=== PATIENT | male | born 1985 | race African-American/Black ===

== ENCOUNTER 2016-10-07 21:37 | Inpatient (IN) | payer MEDICAID ==
[~2016-10-07] VITALS: Ht 170.2 cm; Wt 66.2 kg
[~2016-10-07 21:37] MED LIST: HYDR-3240 PO; OMEP-110 PO; ONDA4TAB13 PO; ONDA4TAB13 SL; PANT40TA5 PO
[2016-10-07] MEDS ORDERED: MORPHINE SULFATE 4 MG/ML, 1ML ONE ×2 (22:26→23:28)
[2016-10-07] MEDS ORDERED: ONDANSETRON 2MG/ML, 2ML ONE (22:26)
[2016-10-07] MEDS ORDERED: ONDANSETRON 2MG/ML, 2ML IVPush ONE (22:30)
[2016-10-07] MEDS ORDERED: SODIUM CHLORIDE FLUSH 10ML SYR IVF ONE (22:30)
[2016-10-07] MEDS ORDERED: SODIUM CHLORIDE 0.9% 1,000ML IVBOLUS ONE ×2 (22:30→23:30)
[2016-10-07] MEDS: MORPHINE SULFATE 4 MG/ML, 1ML IVPush PRN ×2 (22:44→23:30)
[2016-10-07 22:46] LABS: HEMOGLOBIN 16.9 g/dL (13.7-18.0)
[2016-10-07 22:59] LABS: ASPARTATE AMINO TRANSFERASE 18 U/L (15-37); BLOOD UREA NITROGEN 14 mg/dL (7-18)
[2016-10-07 23:10] LABS: DIFF TOTAL CELLS COUNTED 100 CELL DIFF
[2016-10-07 23:11] LABS: VERIFY COUNTS? YES
[2016-10-07] MEDS ORDERED: OMNIPAQUE 350 MG/ML, 100ML BOTTLE ONE (23:45)
[2016-10-08 00:13] LABS: DAU SCREEN DISCLAIMER
[2016-10-08] MEDS ORDERED: BISACODYL 10 MG SUPP PR PRN (02:00)
[2016-10-08] MEDS ORDERED: D5%-0.9% NACL+KCL 20MEQ 1,000 ML IV SCH (02:00)
[2016-10-08] MEDS ORDERED: ONDANSETRON 2MG/ML, 2ML IVP PRN (02:00)
[2016-10-08] MEDS ORDERED: ENALAPRILAT 1.25 MG/ML, 2ML IVPush PRN (02:00)
[2016-10-08] MEDS: METOCLOPRAMIDE 5 MG/ML, 2ML IVPush SCH ×4 (02:00→17:18)
[2016-10-08] MEDS: HEPARIN 5,000 UNITS/ML, 1ML SQ SCH ×3 (02:00→17:13)
[2016-10-08] MEDS ORDERED: POLYETHYLENE GLYCOL 17 GM PACKET PO PRN (02:00)
[2016-10-08 02:56] LABS: BLOOD UREA NITROGEN 12 mg/dL (7-18)
[2016-10-08] MEDS: SODIUM CHLORIDE 0.9% 1,000 ML IV SCH ×3 (03:17→18:05)
[2016-10-08] MEDS: MORPHINE SULFATE 4 MG/ML, 1ML IVPush PRN (03:38)
[2016-10-08 06:31] LABS: HEMOGLOBIN 14.6 g/dL (13.7-18.0)
[2016-10-08] MEDS: ACETAMINOPHEN 325 MG TABLET PO PRN ×2 (06:36→21:35)
[2016-10-08 08:00] VITALS: BP 160/76
[2016-10-08] MEDS: PANTOPRAZOLE 40 MG IV IVP SCH (08:04)
[2016-10-08] MEDS: SENNA/DOCUSATE TABLET PO SCH (08:07)
[2016-10-08 09:57] VITALS: BP 125/61
[2016-10-08 14:00] VITALS: BP 121/68
[2016-10-08 19:27] VITALS: BP 153/85
[2016-10-08] MEDS: ONDANSETRON 2MG/ML, 2ML IVP SCH (20:19)
[2016-10-09] MEDS: METOCLOPRAMIDE 5 MG/ML, 2ML IVPush SCH ×2 (00:17→06:22)
[2016-10-09] MEDS: SODIUM CHLORIDE 0.9% 1,000 ML IV SCH ×3 (00:18→15:25)
[2016-10-09 01:42] VITALS: BP 151/70
[2016-10-09] MEDS: HEPARIN 5,000 UNITS/ML, 1ML SQ SCH ×3 (02:00→18:18)
[2016-10-09] MEDS: ONDANSETRON 2MG/ML, 2ML IVP SCH ×4 (03:00→19:41)
[2016-10-09 05:54] LABS: HEMOGLOBIN 13.6 g/dL (13.7-18.0)
[2016-10-09 05:59] LABS: BLOOD UREA NITROGEN 6 mg/dL (7-18)
[2016-10-09 06:03] LABS: ASPARTATE AMINO TRANSFERASE 17 U/L (15-37)
[2016-10-09 06:53] VITALS: BP 157/86
[2016-10-09] MEDS: PANTOPRAZOLE 40 MG IV IVP SCH (09:31)
[2016-10-09] MEDS: SENNA/DOCUSATE TABLET PO SCH (09:32)
[2016-10-09] MEDS: ACETAMINOPHEN 325 MG TABLET PO PRN (09:33)
[2016-10-09] MEDS ORDERED: MAALOX/HYOSCYAMINE/LIDOCAINE 45 ML BOTTLE PO PRN (11:00)
[2016-10-09 12:58] VITALS: BP 129/73
[2016-10-09 19:07] VITALS: BP 121/73
[2016-10-10] MEDS: HEPARIN 5,000 UNITS/ML, 1ML SQ SCH ×3 (00:51→18:36)
[2016-10-10] MEDS: ONDANSETRON 2MG/ML, 2ML IVP SCH ×2 (01:50→08:00)
[2016-10-10 02:32] VITALS: BP 122/76
[2016-10-10 05:53] LABS: HEMOGLOBIN 13.6 g/dL (13.7-18.0)
[2016-10-10 06:16] LABS: BLOOD UREA NITROGEN 4 mg/dL (7-18)
[2016-10-10 06:34] VITALS: BP 174/96
[2016-10-10] MEDS ORDERED: POTASSIUM CHLORIDE 20 MEQ in SODIUM CHLORIDE 0.9% 250 ML IV ONE (09:00)
[2016-10-10] MEDS ORDERED: MAGNESIUM SULFATE PMX 2GM/50ML 50 ML IV ONE (10:00)
[2016-10-10] MEDS ORDERED: NEUTRA PHOS K 250 MG TABLET PO ONE (10:00)
[2016-10-10] MEDS: PANTOPRAZOLE 40 MG IV IVP SCH (10:58)
[2016-10-10] MEDS: SENNA/DOCUSATE TABLET PO SCH (11:09)
[2016-10-10] MEDS: MAALOX/HYOSCYAMINE/LIDOCAINE 45 ML BOTTLE PO SCH ×2 (12:27→21:00)
[2016-10-10 14:04] VITALS: BP 117/72
[2016-10-10] MEDS: POTASSIUM CHLORIDE 20 MEQ TAB.ER.PRT PO SCH (18:36)
[2016-10-10 18:57] VITALS: BP 141/87
[2016-10-11 01:15] VITALS: BP 158/84
[2016-10-11] MEDS: HEPARIN 5,000 UNITS/ML, 1ML SQ SCH ×3 (02:00→17:35)
[2016-10-11 06:22] LABS: BLOOD UREA NITROGEN 7 mg/dL (7-18)
[2016-10-11] MEDS: PANTOPROZOLE 40MG TABLET PO SCH (07:30)
[2016-10-11] MEDS: POTASSIUM CHLORIDE 20 MEQ TAB.ER.PRT PO SCH (08:00)
[2016-10-11 08:01] VITALS: BP 118/78
[2016-10-11] MEDS ORDERED: POTASSIUM CHLORIDE 20 MEQ TAB.ER.PRT PO ONE (08:30)
[2016-10-11] MEDS ORDERED: POTASSIUM CHLORIDE 40 MEQ in SODIUM CHLORIDE 0.9% 500 ML IV ONE (09:00)
[2016-10-11] MEDS: SENNA/DOCUSATE TABLET PO SCH (09:00)
[2016-10-11] MEDS: MAALOX/HYOSCYAMINE/LIDOCAINE 45 ML BOTTLE PO SCH ×2 (09:03→21:46)
[2016-10-11] MEDS: ONDANSETRON 2MG/ML, 2ML IVP PRN ×2 (09:06→15:13)
[2016-10-11 14:00] VITALS: BP 146/97
[2016-10-11 18:58] VITALS: BP 133/85
[2016-10-12] MEDS: HEPARIN 5,000 UNITS/ML, 1ML SQ SCH ×3 (01:26→18:00)
[2016-10-12 01:39] VITALS: BP 132/73
[2016-10-12 05:47] LABS: HEMOGLOBIN 15.5 g/dL (13.7-18.0)
[2016-10-12 06:05] LABS: BLOOD UREA NITROGEN 8 mg/dL (7-18)
[2016-10-12 06:41] VITALS: BP 136/79
[2016-10-12] MEDS: PANTOPROZOLE 40MG TABLET PO SCH (07:30)
[2016-10-12] MEDS ORDERED: MIDAZOLAM 1 MG/ML, 2ML ONE (07:44)
[2016-10-12] MEDS ORDERED: PROPOFOL 10 MG/ML, 20ML ONE (07:50)
[2016-10-12] MEDS ORDERED: PROPOFOL 10 MG/ML, 50ML ONE (07:50)
[2016-10-12] MEDS ORDERED: LABETALOL 5MG/ML, 20ML IV PRN (08:30)
[2016-10-12] MEDS ORDERED: MEPERIDINE/PF 25MG/0.5ML IVPush PRN (08:30)
[2016-10-12] MEDS ORDERED: ONDANSETRON 2MG/ML, 2ML IVPush PRN (08:30)
[2016-10-12] MEDS ORDERED: ACETAMINOPHEN 325 MG TABLET PO PRN (08:30)
[2016-10-12] MEDS ORDERED: MIDAZOLAM 1 MG/ML, 5ML IV PRN (08:30)
[2016-10-12] MEDS ORDERED: FENTANYL PF 100 MCG/2ML IV PRN (08:30)
[2016-10-12] MEDS ORDERED: METOCLOPRAMIDE 5 MG/ML, 2ML IV PRN (08:30)
[2016-10-12] MEDS ORDERED: PROMETHAZINE 25 MG/ML, 1ML IV PRN (08:30)
[2016-10-12] MEDS ORDERED: OXYcodone 5 MG/5 ML ORAL.SOL UDC PO PRN (08:30)
[2016-10-12] MEDS ORDERED: hydrALAzine 20 MG/ML, 1ML IV PRN (08:30)
[2016-10-12] MEDS ORDERED: HYDROmorphone 1 MG/ML, 1ML IV PRN (08:30)
[2016-10-12] MEDS: MAALOX/HYOSCYAMINE/LIDOCAINE 45 ML BOTTLE PO SCH ×2 (09:00→22:13)
[2016-10-12] MEDS: SENNA/DOCUSATE TABLET PO SCH (09:00)
[2016-10-12] MEDS: ONDANSETRON 2MG/ML, 2ML IVP PRN ×2 (09:28→19:45)
[2016-10-12] MEDS ORDERED: POTASSIUM CHLORIDE 20 MEQ TAB.ER.PRT PO ONE ×2 (12:00)
[2016-10-12 13:18] VITALS: BP 132/93
[2016-10-12] MEDS: DICYCLOMINE 10 MG/ML, 2ML IM PRN (14:07)
[2016-10-12 19:01] VITALS: BP 107/76
[2016-10-13] MEDS: HEPARIN 5,000 UNITS/ML, 1ML SQ SCH ×3 (01:48→17:43)
[2016-10-13 02:20] VITALS: BP 118/84
[2016-10-13 05:38] LABS: HEMOGLOBIN 15.6 g/dL (13.7-18.0)
[2016-10-13 05:42] LABS: BLOOD UREA NITROGEN 9 mg/dL (7-18)
[2016-10-13 06:40] VITALS: BP 115/72
[2016-10-13] MEDS ORDERED: POTASSIUM CHLORIDE 40 MEQ in SODIUM CHLORIDE 0.9% 500 ML IV ONE (07:30)
[2016-10-13] MEDS: PANTOPROZOLE 40MG TABLET PO SCH (07:30)
[2016-10-13] MEDS: SENNA/DOCUSATE TABLET PO SCH (09:00)
[2016-10-13] MEDS: MAALOX/HYOSCYAMINE/LIDOCAINE 45 ML BOTTLE PO SCH ×2 (09:00→20:36)
[2016-10-13] MEDS: ONDANSETRON 2MG/ML, 2ML IVP PRN ×2 (09:03→17:49)
[2016-10-13] MEDS ORDERED: POTASSIUM CHLORIDE 20 MEQ TAB.ER.PRT PO ONE (12:00)
[2016-10-13 12:40] VITALS: BP 119/72
[2016-10-13 19:44] VITALS: BP 113/76
[2016-10-13] MEDS: PROMETHAZINE 12.5 MG SUPP PR PRN (20:11)
[2016-10-14 01:22] VITALS: BP 101/68
[2016-10-14] MEDS: HEPARIN 5,000 UNITS/ML, 1ML SQ SCH ×3 (02:00→18:00)
[2016-10-14 06:40] VITALS: BP 144/74
[2016-10-14 07:18] LABS: HEMOGLOBIN 15.9 g/dL (13.7-18.0)
[2016-10-14 07:24] LABS: BLOOD UREA NITROGEN 9 mg/dL (7-18)
[2016-10-14] MEDS: PANTOPROZOLE 40MG TABLET PO SCH (07:30)
[2016-10-14] MEDS: MAALOX/HYOSCYAMINE/LIDOCAINE 45 ML BOTTLE PO SCH (09:00)
[2016-10-14] MEDS: SENNA/DOCUSATE TABLET PO SCH (09:00)
[2016-10-14] MEDS: DICYCLOMINE 10 MG/ML, 2ML IM PRN ×2 (10:22→16:55)
[2016-10-14] MEDS: ONDANSETRON 2MG/ML, 2ML IVP PRN (10:42)
[2016-10-14] MEDS: PROMETHAZINE 12.5 MG SUPP PR PRN (12:53)
[2016-10-14 14:30] VITALS: BP 154/89
[2016-10-14] MEDS: NS + 20MEQ KCL 1,000 ML IV SCH (16:53)
[2016-10-14] MEDS: METOCLOPRAMIDE 5 MG/ML, 2ML IVPush SCH (16:54)
[2016-10-14 19:57] VITALS: BP_SYST 143; BP_SYST 154; BP_DIAS 108; BP_DIAS 130
[2016-10-14] MEDS ORDERED: AMITRIPTYLINE 25 MG TABLET PO SCH (21:00)
[2016-10-15] MEDS: NS + 20MEQ KCL 1,000 ML IV SCH (00:30)
[2016-10-15] MEDS: MAALOX/HYOSCYAMINE/LIDOCAINE 45 ML BOTTLE PO SCH ×2 (00:31→11:39)
[2016-10-15] MEDS: METOCLOPRAMIDE 5 MG/ML, 2ML IVPush SCH ×4 (00:31→17:00)
[2016-10-15] MEDS: HEPARIN 5,000 UNITS/ML, 1ML SQ SCH ×2 (01:15→10:00)
[2016-10-15 02:41] VITALS: BP 138/88
[2016-10-15 06:54] VITALS: BP 130/81
[2016-10-15] MEDS: PANTOPROZOLE 40MG TABLET PO SCH (10:11)
[2016-10-15] MEDS: SENNA/DOCUSATE TABLET PO SCH (10:11)
[2016-10-15] MEDS ORDERED: OMEP-110 PO (11:22)
[2016-10-15 13:16] VITALS: BP 121/88
[2016-10-15] MEDS ORDERED: METO5TAB57 PO (15:29)
[2016-10-15] MEDS ORDERED: PROM25TA10 PO (15:29)
[2016-10-15] MEDS ORDERED: AMIT25TA PO (15:29)
== END 2016-10-15 17:37 | disposition home or self-care (01) | DRG 102 ==
LOC: ED 23:59 → EDIP 10-08 01:15 → 3NE 10-08 02:39
PROVIDERS: ADMIT Internal Medicine; ATTEND Family Medicine
PROC: 0T9B70Z Drainage of Bladder with Drainage Device, Via Natural or Artificial Opening (ICD-10-PCS; 2016-10-08)
PROC: 0DB68ZX Excision of Stomach, Via Natural or Artificial Opening Endoscopic, Diagnostic (ICD-10-PCS; 2016-10-12)
PROC: 0DB98ZX Excision of Duodenum, Via Natural or Artificial Opening Endoscopic, Diagnostic (ICD-10-PCS; principal; 2016-10-12 08:00)
DX: G43.A0 Cyclical vomiting, in migraine, not intractable (principal); N17.0 Acute kidney failure with tubular necrosis; K22.10 Ulcer of esophagus without bleeding; E87.1 Hypo-osmolality and hyponatremia; E86.0 Dehydration; F17.210 Nicotine dependence, cigarettes, uncomplicated; E83.52 Hypercalcemia; F12.10 Cannabis abuse, uncomplicated; F11.10 Opioid abuse, uncomplicated; E87.6 Hypokalemia; K29.70 Gastritis, unspecified, without bleeding; Z83.3 Family history of diabetes mellitus; Z80.8 Family history of malignant neoplasm of other organs or systems
CPT/HCPCS: 36415; 74177; 80048; 80053; 80061; 80307; 81001; 83036; 83690; 83735; 84100; 84439; 84443; 85025; 86677; 87040; 88305; 96361; 96374; J1644; J2250; J2405; J2704; J3480; Q9967; C9113; J0500; J2765; J3475; J7030; J7040; J7050

== ENCOUNTER 2016-11-10 02:37 | Inpatient (IN) | payer MEDICAID ==
[~2016-11-10] VITALS: Ht 170.2 cm; Wt 66.9 kg
[~2016-11-10 02:37] MED LIST changes: +AMIT25TA PO; +METO5TAB57 PO; +PROM25TA10 PO
[2016-11-10] MEDS ORDERED: ONDANSETRON 2MG/ML, 2ML ONE (03:22)
[2016-11-10] MEDS ORDERED: HYDROmorphone 1 MG/ML, 1ML ONE ×2 (03:22→05:55)
[2016-11-10] MEDS: HYDROmorphone 1 MG/ML, 1ML IVPush PRN ×2 (03:24→05:53)
[2016-11-10] MEDS ORDERED: SODIUM CHLORIDE 0.9% 1,000ML IVBOLUS ONE ×2 (03:30→06:00)
[2016-11-10] MEDS ORDERED: ONDANSETRON 2MG/ML, 2ML IVPush ONE (03:30)
[2016-11-10] MEDS ORDERED: SODIUM CHLORIDE FLUSH 10ML SYR IVF ONE (03:30)
[2016-11-10 04:10] LABS: BLOOD UREA NITROGEN 70 mg/dL (7-18)
[2016-11-10 04:15] LABS: ASPARTATE AMINO TRANSFERASE 34 U/L (15-37)
[2016-11-10] MEDS ORDERED: OMNIPAQUE 350 MG/ML, 100ML BOTTLE ONE (05:57)
[2016-11-10 06:01] LABS: DAU SCREEN DISCLAIMER
[2016-11-10] MEDS ORDERED: POTASSIUM CHLORIDE 20 MEQ in SODIUM CHLORIDE 0.9% 1,000 ML IV ONE (06:41)
[2016-11-10] MEDS ORDERED: MORPHINE SULFATE 4 MG/ML, 1ML IVPush PRN (07:00)
[2016-11-10] MEDS ORDERED: ONDANSETRON 2MG/ML, 2ML IVPush PRN (07:00)
[2016-11-10] MEDS ORDERED: MAGNESIUM SULFATE PMX 2GM/50ML 50 ML IV ONE (08:00)
[2016-11-10] MEDS ORDERED: DOCUSATE 100 MG CAPSULE PO PRN (08:00)
[2016-11-10] MEDS: HEPARIN 5,000 UNITS/ML, 1ML SQ SCH ×2 (08:00→16:00)
[2016-11-10] MEDS ORDERED: POLYETHYLENE GLYCOL 17 GM PACKET PO PRN (08:00)
[2016-11-10] MEDS ORDERED: morphine SULFATE 10 MG/ML, 1ML IVPush PRN (08:00)
[2016-11-10] MEDS ORDERED: BISACODYL 10 MG SUPP PR PRN (08:00)
[2016-11-10 08:02] VITALS: BP 155/94
[2016-11-10] MEDS: POTASSIUM CHLORIDE 30 MEQ in SODIUM CHLORIDE 0.9% 1,000 ML IV SCH ×2 (10:16→22:46)
[2016-11-10 12:58] VITALS: BP 131/89
[2016-11-10 19:46] VITALS: BP 122/70
[2016-11-11 01:27] VITALS: BP 117/68
[2016-11-11] MEDS: ONDANSETRON 2MG/ML, 2ML IVPush PRN ×3 (05:18→18:34)
[2016-11-11 06:44] LABS: ASPARTATE AMINO TRANSFERASE 24 U/L (15-37); BLOOD UREA NITROGEN 20 mg/dL (7-18)
[2016-11-11] MEDS: PANTOPRAZOLE 40 MG IV IVPush SCH (07:28)
[2016-11-11] MEDS: HEPARIN 5,000 UNITS/ML, 1ML SQ SCH ×4 (07:29→23:02)
[2016-11-11 07:45] VITALS: BP 124/78
[2016-11-11] MEDS: POTASSIUM CHLORIDE 30 MEQ in SODIUM CHLORIDE 0.9% 1,000 ML IV SCH ×2 (07:53→18:34)
[2016-11-11] MEDS ORDERED: POTASSIUM CHLORIDE 20 MEQ TAB.ER.PRT PO ONE (10:00)
[2016-11-11] MEDS: SUCRALFATE 1 GM/10 ML UDC PO SCH ×3 (11:00→20:04)
[2016-11-11] MEDS: LEVOFLOXACIN/PMX 500MG/100ML 100 ML IV SCH (11:18)
[2016-11-11 12:07] VITALS: BP 132/83
[2016-11-11] MEDS: DICYCLOMINE 10 MG/ML, 2ML IM PRN ×2 (14:49→22:55)
[2016-11-11 20:04] VITALS: BP 105/71
[2016-11-12 03:01] VITALS: BP 123/78
[2016-11-12] MEDS: POTASSIUM CHLORIDE 30 MEQ in SODIUM CHLORIDE 0.9% 1,000 ML IV SCH ×2 (05:12→16:10)
[2016-11-12] MEDS: SUCRALFATE 1 GM/10 ML UDC PO SCH ×4 (06:09→20:45)
[2016-11-12 06:11] LABS: BLOOD UREA NITROGEN 12 mg/dL (7-18)
[2016-11-12] MEDS: DICYCLOMINE 10 MG/ML, 2ML IM PRN (06:21)
[2016-11-12] MEDS: ONDANSETRON 2MG/ML, 2ML IVPush PRN ×3 (07:08→19:30)
[2016-11-12] MEDS: HEPARIN 5,000 UNITS/ML, 1ML SQ SCH ×3 (08:00→22:00)
[2016-11-12 08:52] VITALS: BP 130/77
[2016-11-12] MEDS: PANTOPRAZOLE 40 MG IV IVPush SCH (09:35)
[2016-11-12] MEDS: LEVOFLOXACIN/PMX 500MG/100ML 100 ML IV SCH (09:35)
[2016-11-12] MEDS: MORPHINE SULFATE 4 MG/ML, 1ML IVPush PRN ×2 (12:49→20:49)
[2016-11-12 12:55] VITALS: BP 163/93
[2016-11-12] MEDS: ONDANSETRON ODT 4 MG PO PRN ×2 (16:10→21:52)
[2016-11-12 19:20] VITALS: BP 151/96
[2016-11-13] MEDS: POTASSIUM CHLORIDE 30 MEQ in SODIUM CHLORIDE 0.9% 1,000 ML IV SCH ×2 (01:27→10:54)
[2016-11-13 01:55] VITALS: BP 132/82
[2016-11-13] MEDS: MORPHINE SULFATE 4 MG/ML, 1ML IVPush PRN (04:50)
[2016-11-13] MEDS: HEPARIN 5,000 UNITS/ML, 1ML SQ SCH (05:43)
[2016-11-13] MEDS: SUCRALFATE 1 GM/10 ML UDC PO SCH (05:43)
[2016-11-13 08:30] VITALS: BP 136/93
[2016-11-13] MEDS: PANTOPRAZOLE 40 MG IV IVPush SCH (08:33)
[2016-11-13] MEDS: DICYCLOMINE 10 MG/ML, 2ML IM PRN (08:34)
[2016-11-13] MEDS: LEVOFLOXACIN/PMX 500MG/100ML 100 ML IV SCH (11:34)
[2016-11-13] MEDS ORDERED: TRAM50TA2 PO (12:39)
[2016-11-13] MEDS ORDERED: LACT1CAP24 PO (12:39)
[2016-11-13] MEDS ORDERED: SUCR1ORA2 PO (12:39)
[2016-11-13] MEDS ORDERED: OMEP-110 PO (12:39)
[2016-11-13] MEDS ORDERED: LEVO500T33 PO (12:39)
[2016-11-13] MEDS ORDERED: ONDA4TAB13 SL (12:39)
[2016-11-13] MEDS ORDERED: POLY17PO5 PO (12:39)
== END 2016-11-13 14:50 | disposition home or self-care (01) | DRG 727 ==
LOC: ED 03:25 → EDIP 06:41 → 3NE 07:32 → DCLOUNGE 11-13 14:17
PROVIDERS: ADMIT Internal Medicine; ATTEND Internal Medicine
DX: N45.1 Epididymitis (principal); N17.0 Acute kidney failure with tubular necrosis; E87.1 Hypo-osmolality and hyponatremia; N17.9 Acute kidney failure, unspecified; R17 Unspecified jaundice; K29.00 Acute gastritis without bleeding; E86.0 Dehydration; E87.6 Hypokalemia; F17.210 Nicotine dependence, cigarettes, uncomplicated; G43.A0 Cyclical vomiting, in migraine, not intractable; G89.29 Other chronic pain; K59.00 Constipation, unspecified; N50.3 Cyst of epididymis; Z83.3 Family history of diabetes mellitus; Z80.6 Family history of leukemia; Z79.899 Other long term (current) drug therapy; Z91.19 Patient's noncompliance with other medical treatment and regimen
CPT/HCPCS: 36415; 74020; 74177; 76870; 80048; 80053; 80307; 81001; 83690; 83735; 85025; 87040; 87086; 96361; 96374; 96375; J1170; J1956; J2405; J3480; Q0162; Q9967; C9113; J0500; J3475; J7030

== ENCOUNTER 2016-12-09 19:28 | Emergency (ER) | payer MEDICAID ==
[~2016-12-09] VITALS: Ht 170.2 cm; Wt 62.5 kg
[~2016-12-09 19:28] MED LIST changes: +LACT1CAP24 PO; +LEVO500T33 PO; +POLY17PO5 PO; +SUCR1ORA2 PO; +TRAM50TA2 PO
[2016-12-09] MEDS ORDERED: SODIUM CHLORIDE 0.9% 1,000ML IVBOLUS ONE (20:00)
[2016-12-09] MEDS ORDERED: FAMOTIDINE 20 MG/2 ML IVP ONE (20:00)
[2016-12-09] MEDS ORDERED: ONDANSETRON 2MG/ML, 2ML IVPush ONE (20:00)
[2016-12-09] MEDS ORDERED: SODIUM CHLORIDE FLUSH 10ML SYR IVF ONE (20:00)
[2016-12-09] MEDS ORDERED: MORPHINE SULFATE 4 MG/ML, 1ML ONE ×2 (20:42→21:57)
[2016-12-09] MEDS ORDERED: ONDANSETRON 2MG/ML, 2ML ONE (20:42)
[2016-12-09] MEDS ORDERED: FAMOTIDINE 20 MG/2 ML ONE (20:42)
[2016-12-09] MEDS: MORPHINE SULFATE 4 MG/ML, 1ML IVPush PRN ×2 (20:44→22:00)
[2016-12-09 20:54] LABS: ASPARTATE AMINO TRANSFERASE 27 U/L (15-37); BLOOD UREA NITROGEN 10 mg/dL (7-18)
[2016-12-09] MEDS ORDERED: MAALOX/HYOSCYAMINE/LIDOCAINE 45 ML BOTTLE ONE (21:27)
[2016-12-09] MEDS ORDERED: MAALOX/HYOSCYAMINE/LIDOCAINE 45 ML BOTTLE PO ONE (22:00)
[2016-12-09 22:01] VITALS: BP 148/94
[2016-12-09] MEDS ORDERED: ZIPRASIDONE 20 MG INJ IM ONE ×2 (22:06→22:30)
== END 2016-12-09 22:21 | disposition home or self-care (01) ==
LOC: ED 22:18
DX: K29.00 Acute gastritis without bleeding (principal); N19 Unspecified kidney failure
CPT/HCPCS: 36415; 76700; 80053; 83690; 85025; 96361; 96372; 96374; 96375; 96376; 99285; J2405; J3486; J7030; S0028

== ENCOUNTER → 2017-01-06 | Outpatient (CLI) | payer OTHER | END | disposition home or self-care (01) | LOC: RAD 13:59 | PROVIDERS: ATTEND Student in an Organized Health Care Education/Training Program | DX: K76.89 Other specified diseases of liver (principal); K85.90 Acute pancreatitis without necrosis or infection, unspecified | CPT/HCPCS: 74150 ==

== ENCOUNTER 2017-07-13 15:03 | Emergency (ER) | payer MEDICAID ==
[~2017-07-13] VITALS: Ht 170.2 cm; Wt 72.3 kg
[~2017-07-13 15:03] MED LIST changes: -LEVO500T33 PO; +LEVO500T47 PO; -SUCR1ORA2 PO; +SUCR1ORA5 PO
[2017-07-13] MEDS ORDERED: SODIUM CHLORIDE 0.9% 1,000ML IVBOLUS ONE (15:30)
[2017-07-13] MEDS ORDERED: FAMOTIDINE 20 MG/2 ML IVP ONE (15:30)
[2017-07-13] MEDS ORDERED: ONDANSETRON 2MG/ML, 2ML IVPush ONE (15:30)
[2017-07-13 15:37] LABS: MEAN CORPUSCULAR HEMOGLOBIN 31.9 pg (27.5-34.5); MEAN CORPUSCULAR HGB CONC 33.2 g/dL (33.2-36.2); MEAN CORPUSCULAR VOLUME 96.2 fL (81-97); MEAN PLATELET VOLUME 8.3 fL (7.4-10.4); PLATELET COUNT 256 x10^3/uL (130-400); RED BLOOD COUNT 5.38 x10^6/uL (4.38-5.82); RED CELL DISTRIBUTION WIDTH 13.8 % (9.4-14.8)
[2017-07-13 15:49] LABS: ALANINE AMINOTRANSFERASE 53 U/L (12-78); ALBUMIN 4.8 g/dL (3.4-5.0); ANION GAP 8 mmol/L (5-15); CALCIUM 10.2 mg/dL (8.5-10.1); CHLORIDE 100 mmol/L (98-107)
[2017-07-13 15:52] LABS: ALKALINE PHOSPHATASE 84 U/L (45-117); BILIRUBIN,TOTAL 0.5 mg/dL (0.2-1.0); CREATININE 1.22 mg/dL (0.7-1.3); TOTAL PROTEIN 9.5 g/dL (6.4-8.2)
[2017-07-13] MEDS ORDERED: FAMOTIDINE 20 MG/2 ML ONE (15:52)
[2017-07-13] MEDS ORDERED: ONDANSETRON 2MG/ML, 2ML ONE (15:52)
[2017-07-13] MEDS ORDERED: METOCLOPRAMIDE 5 MG/ML, 2ML IVPush ONE (16:00)
[2017-07-13 16:03] LABS: BASOPHILS # (AUTO) 0.03 x10^3/uL (0-0.1); BASOPHILS % (AUTO) 0 % (0-1); EOSINOPHILS # (AUTO) 0.01 x10^3/uL (0-0.4); EOSINOPHILS % (AUTO) 0 % (1-7); LYMPHOCYTES # (AUTO) 2.18 x10^3/uL (1-3.4); LYMPHOCYTES % (AUTO) 15 % (22-44); MD SCAN; MONOCYTES # (AUTO) 1.59 x10^3/uL (0.2-0.8); MONOCYTES % (AUTO) 11 % (2-9); NEUTROPHILS # (AUTO) 10.58 x10^3/uL (1.8-6.8); NEUTROPHILS % (AUTO) 74 % (42-75)
[2017-07-13] MEDS ORDERED: METOCLOPRAMIDE 5 MG/ML, 2ML ONE (16:22)
[2017-07-13 17:21] VITALS: BP 98/51
== END 2017-07-13 17:23 | disposition home or self-care (01) ==
LOC: ED 16:47
DX: K29.00 Acute gastritis without bleeding (principal); R11.2 Nausea with vomiting, unspecified; E87.1 Hypo-osmolality and hyponatremia
CPT/HCPCS: 36415; 76700; 80053; 83690; 85025; 96361; 96374; 96375; 99285; J2405; J2765; J7030; S0028

== ENCOUNTER 2017-07-15 20:52 | Inpatient (IN) | payer MEDICAID ==
[~2017-07-15] VITALS: Ht 170.2 cm; Wt 74.9 kg
[2017-07-15] MEDS ORDERED: DICY10CA53 PO (21:14)
[2017-07-15] MEDS ORDERED: ONDA4TAB7 PO (21:14)
[2017-07-15] MEDS ORDERED: ONDANSETRON 2MG/ML, 2ML ONE (21:46)
[2017-07-15] MEDS ORDERED: FAMOTIDINE 20 MG/2 ML ONE (21:46)
[2017-07-15] MEDS ORDERED: FAMOTIDINE 20 MG/2 ML IVP ONE (22:00)
[2017-07-15] MEDS ORDERED: SODIUM CHLORIDE FLUSH 10ML SYR IVF ONE (22:00)
[2017-07-15] MEDS ORDERED: SODIUM CHLORIDE 0.9% 1,000ML IVBOLUS ONE (22:00)
[2017-07-15] MEDS ORDERED: ONDANSETRON 2MG/ML, 2ML IVPush ONE (22:00)
[2017-07-15 22:01] LABS: BASOPHILS # (AUTO) 0.02 x10^3/uL (0-0.1); BASOPHILS % (AUTO) 0 % (0-1); EOSINOPHILS # (AUTO) 0.01 x10^3/uL (0-0.4); EOSINOPHILS % (AUTO) 0 % (1-7); LYMPHOCYTES % (AUTO) 11 % (22-44); MD NO; MEAN CORPUSCULAR HEMOGLOBIN 32.1 pg (27.5-34.5); MEAN CORPUSCULAR HGB CONC 33.6 g/dL (33.2-36.2); MEAN CORPUSCULAR VOLUME 95.7 fL (81-97); MEAN PLATELET VOLUME 8.1 fL (7.4-10.4); MONOCYTES # (AUTO) 0.49 x10^3/uL (0.2-0.8); MONOCYTES % (AUTO) 4 % (2-9); NEUTROPHILS # (AUTO) 10.38 x10^3/uL (1.8-6.8); NEUTROPHILS % (AUTO) 85 % (42-75); PLATELET COUNT 250 x10^3/uL (130-400); RED BLOOD COUNT 4.61 x10^6/uL (4.38-5.82)
[2017-07-15 22:08] LABS: ALANINE AMINOTRANSFERASE 46 U/L (12-78); ALBUMIN 3.9 g/dL (3.4-5.0); ANION GAP 9 mmol/L (5-15); CALCIUM 8.9 mg/dL (8.5-10.1); CHLORIDE 103 mmol/L (98-107); CREATININE 1.07 mg/dL (0.7-1.3)
[2017-07-15 22:10] LABS: ALKALINE PHOSPHATASE 68 U/L (45-117); BILIRUBIN,TOTAL 0.4 mg/dL (0.2-1.0); TOTAL PROTEIN 7.9 g/dL (6.4-8.2)
[2017-07-15] MEDS ORDERED: ZIPRASIDONE 20 MG INJ IM ONE ×2 (22:46→23:00)
[2017-07-15 23:09] LABS: MICROSCOPIC AUTO
[2017-07-15 23:13] LABS: CULTURE INDICATED? NO
[2017-07-16] MEDS ORDERED: PROMETHAZINE 25 MG/ML, 1ML IM ONE (00:30)
[2017-07-16] MEDS ORDERED: POTASSIUM CHLORIDE 20 MEQ in SODIUM CHLORIDE 0.9% 1,000 ML IV ONE (00:35)
[2017-07-16] MEDS ORDERED: NS + 20MEQ KCL 1,000 ML IV ONE (00:52)
[2017-07-16] MEDS ORDERED: PROMETHAZINE 25 MG/ML, 1ML ONE (00:52)
[2017-07-16] MEDS ORDERED: ONDANSETRON 2MG/ML, 2ML IVPush PRN ×2 (01:00)
[2017-07-16] MEDS ORDERED: morphine SULFATE 10 MG/ML, 1ML IVPush PRN (01:00)
[2017-07-16] MEDS ORDERED: hydrALAzine 20 MG/ML, 1ML IVPush PRN (01:00)
[2017-07-16] MEDS ORDERED: PROMETHAZINE 25 MG/ML, 1ML IM PRN (01:00)
[2017-07-16] MEDS ORDERED: ENALAPRILAT 1.25 MG/ML, 2ML IVPush PRN (01:00)
[2017-07-16] MEDS ORDERED: MORPHINE SULFATE 4 MG/ML, 1ML IVPush PRN (01:00)
[2017-07-16] MEDS ORDERED: BISACODYL 10 MG SUPP PR PRN (01:00)
[2017-07-16] MEDS ORDERED: POLYETHYLENE GLYCOL 17 GM PACKET PO PRN (01:00)
[2017-07-16] MEDS: POTASSIUM CHLORIDE 40 MEQ in D5%-0.9% NACL 1,000 ML IV SCH ×3 (01:15→21:45)
[2017-07-16 01:32] VITALS: BP 153/89
[2017-07-16 01:33] VITALS: BP 153/89
[2017-07-16 01:34] LABS: FREE T4 (FREE THYROXINE) 1.24 ng/dL (0.76-1.46); THYROID STIMULATING HORMONE 0.479 mIU/L (0.358-3.740)
[2017-07-16 01:45] LABS: HEMOGLOBIN A1C 5.7 % (4.2-6.3)
[2017-07-16 02:03] LABS: AMPHETAMINE SCREEN, URINE Negative (Negative); BARBITURATE SCREEN, URINE Negative (Negative); BENZODIAZEPINE SCREEN, URINE Negative (Negative); CANNABINOID SCREEN, URINE Positive (Negative); COCAINE SCREEN, URINE Negative (Negative); METHADONE SCREEN, URINE Negative (Negative); OPIATE SCREEN, URINE Negative (Negative)
[2017-07-16 07:33] VITALS: BP 136/76
[2017-07-16] MEDS ORDERED: METOCLOPRAMIDE 5 MG/ML, 2ML IVPush PRN (08:00)
[2017-07-16] MEDS: SENNA/DOCUSATE TABLET PO SCH (09:00)
[2017-07-16] MEDS: FAMOTIDINE 20 MG/2 ML IVPush SCH ×2 (09:36→21:45)
[2017-07-16] MEDS: KETOROLAC 30 MG/1 ML IM PRN ×2 (10:05→16:12)
[2017-07-16 13:37] VITALS: BP 128/77
[2017-07-16 20:05] VITALS: BP 136/81
[2017-07-17 01:52] VITALS: BP 137/91
[2017-07-17 05:33] LABS: MEAN CORPUSCULAR HEMOGLOBIN 32.4 pg (27.5-34.5); MEAN CORPUSCULAR HGB CONC 33.6 g/dL (33.2-36.2); MEAN CORPUSCULAR VOLUME 96.6 fL (81-97); MEAN PLATELET VOLUME 8.2 fL (7.4-10.4); PLATELET COUNT 234 x10^3/uL (130-400); RED CELL DISTRIBUTION WIDTH 13.3 % (9.4-14.8)
[2017-07-17] MEDS: POTASSIUM CHLORIDE 40 MEQ in D5%-0.9% NACL 1,000 ML IV SCH (05:35)
[2017-07-17 05:38] LABS: ALBUMIN 3.1 g/dL (3.4-5.0); ANION GAP 7 mmol/L (5-15); CALCIUM 7.9 mg/dL (8.5-10.1); CHLORIDE 110 mmol/L (98-107)
[2017-07-17 05:55] LABS: ALANINE AMINOTRANSFERASE 36 U/L (12-78); ALKALINE PHOSPHATASE 57 U/L (45-117); BILIRUBIN,TOTAL 0.5 mg/dL (0.2-1.0); CHOL/HDL RATIO 3.2; CHOLESTEROL, TOTAL 122 mg/dL (140-239); CREATININE 0.78 mg/dL (0.7-1.3); HDL CHOL % 31 % (26-37); HDL CHOLESTEROL (DIRECT) 38 mg/dL (40-60); LDL CHOLESTEROL,CALCULATED 70 mg/dL (54-169); LDL/HDL RATIO 1.8 (0.5-3.0); TOTAL PROTEIN 6.3 g/dL (6.4-8.2); TRIGLYCERIDES 69 mg/dL (50-200); VLDL CHOLESTEROL 14 mg/dL (0-25)
[2017-07-17 06:03] LABS: MD YES
[2017-07-17 06:04] LABS: EOS#(MANUAL) 0.09 x10^3/uL (0.0-0.4); EOS% (MANUAL) 1 % (1-7); LYMPH#(MANUAL) 4.69 x10^3/uL (1-3.4); LYMPHS% (MANUAL) 51 % (22-44); MONOS#(MANUAL) 0.55 x10^3/uL (0.3-2.7); MONOS% (MANUAL) 6 % (2-9); REACTIVE LYMPHS # (MANUAL) 0.09 x10^3/uL (0-0); REACTIVE LYMPHS % (MANUAL) 1 % (0-0); SEG#(MANUAL) 3.77 x10^3/uL (1.8-6.8); SEGS% (MANUAL) 41 % (42-75)
[2017-07-17 06:07] LABS: <PLATELET ESTIMATE> ADEQUATE; <PLT MORPHOLOGY> NORMAL PLT MORPH; <RBC MORPHOLOGY> NORMAL
[2017-07-17 07:15] VITALS: BP 149/90
[2017-07-17] MEDS: SENNA/DOCUSATE TABLET PO SCH (09:00)
[2017-07-17] MEDS: FAMOTIDINE 20 MG/2 ML IVPush SCH (09:39)
== END 2017-07-17 14:00 | disposition home or self-care (01) | DRG 895 ==
LOC: ED 22:01 → EDIP 07-16 01:37 → 4WST 07-16 01:47
PROVIDERS: ADMIT Internal Medicine; ATTEND Internal Medicine
PROC: HZ34ZZZ Individual Counseling for Substance Abuse Treatment, Interpersonal (ICD-10-PCS; principal; 2017-07-16)
DX: F12.188 Cannabis abuse with other cannabis-induced disorder (principal); E86.0 Dehydration; E87.6 Hypokalemia; F12.10 Cannabis abuse, uncomplicated; K59.09 Other constipation; Z79.1 Long term (current) use of non-steroidal anti-inflammatories (NSAID); Z79.899 Other long term (current) drug therapy; Z71.51 Drug abuse counseling and surveillance of drug abuser; Y92.89 Other specified places as the place of occurrence of the external cause; Z88.6 Allergy status to analgesic agent; R11.2 Nausea with vomiting, unspecified
CPT/HCPCS: 36415; 74021; 80053; 80061; 80307; 81001; 83036; 83690; 83735; 84439; 84443; 85025; 96372; 96374; 96375; J1885; J2405; J2550; J3480; J3486; J7042; J2765; J7030; S0028

== ENCOUNTER 2017-08-13 08:54 | Emergency (ER) | payer MEDICAID ==
[~2017-08-13] VITALS: Ht 170.2 cm; Wt 71.0 kg
[~2017-08-13 08:54] MED LIST changes: +DICY10CA53 PO; +ONDA4TAB7 PO
[2017-08-13] MEDS ORDERED: CAPSAICIN CRM 0.075%, 60GM TP ONE (09:30)
[2017-08-13] MEDS ORDERED: SODIUM CHLORIDE 0.9% 1,000ML IVBOLUS ONE (09:30)
[2017-08-13] MEDS ORDERED: METOCLOPRAMIDE 5 MG/ML, 2ML IVPush ONE (09:30)
[2017-08-13] MEDS ORDERED: HALOPERIDOL 5 MG/ML IM ONE (09:30)
[2017-08-13] MEDS ORDERED: FAMOTIDINE 20 MG/2 ML IVP ONE (09:30)
[2017-08-13] MEDS ORDERED: DIPHENHYDRAMINE 50 MG/ML, 1ML IVPush ONE (09:30)
[2017-08-13 09:47] LABS: BASOPHILS # (AUTO) 0.03 x10^3/uL (0-0.1); BASOPHILS % (AUTO) 0 % (0-1); EOSINOPHILS % (AUTO) 0 % (1-7); LYMPHOCYTES # (AUTO) 1.34 x10^3/uL (1-3.4); LYMPHOCYTES % (AUTO) 12 % (22-44); MD NO; MEAN CORPUSCULAR HEMOGLOBIN 32.5 pg (27.5-34.5); MEAN CORPUSCULAR HGB CONC 33.9 g/dL (33.2-36.2); MEAN CORPUSCULAR VOLUME 95.9 fL (81-97); MEAN PLATELET VOLUME 8.2 fL (7.4-10.4); MONOCYTES % (AUTO) 6 % (2-9); NEUTROPHILS # (AUTO) 8.95 x10^3/uL (1.8-6.8); NEUTROPHILS % (AUTO) 82 % (42-75); PLATELET COUNT 281 x10^3/uL (130-400); RED BLOOD COUNT 5.11 x10^6/uL (4.38-5.82); RED CELL DISTRIBUTION WIDTH 13.4 % (9.4-14.8)
[2017-08-13 09:59] LABS: ANION GAP 10 mmol/L (5-15); CALCIUM 9.6 mg/dL (8.5-10.1); CHLORIDE 104 mmol/L (98-107); CREATININE 1.13 mg/dL (0.7-1.3)
[2017-08-13 10:00] LABS: ALANINE AMINOTRANSFERASE 81 U/L (12-78); ALBUMIN 4.2 g/dL (3.4-5.0)
[2017-08-13] MEDS ORDERED: FAMOTIDINE 20 MG/2 ML ONE (10:00)
[2017-08-13] MEDS ORDERED: METOCLOPRAMIDE 5 MG/ML, 2ML ONE (10:00)
[2017-08-13] MEDS ORDERED: HALOPERIDOL 5 MG/ML ONE (10:00)
[2017-08-13] MEDS ORDERED: DIPHENHYDRAMINE 50 MG/ML, 1ML ONE (10:00)
[2017-08-13 10:02] LABS: ALKALINE PHOSPHATASE 70 U/L (45-117); BILIRUBIN,TOTAL 0.6 mg/dL (0.2-1.0); TOTAL PROTEIN 8.6 g/dL (6.4-8.2)
[2017-08-13 11:43] VITALS: BP 124/64
== END 2017-08-13 11:53 | disposition home or self-care (01) ==
LOC: ED 10:30
DX: E86.0 Dehydration (principal); R11.2 Nausea with vomiting, unspecified; R10.84 Generalized abdominal pain; F17.200 Nicotine dependence, unspecified, uncomplicated
CPT/HCPCS: 36415; 80053; 83690; 85025; 96361; 96372; 96374; 96375; 99284; J1200; J1630; J2765; J7030; S0028

== ENCOUNTER 2017-09-20 08:53 | Emergency (ER) | payer MEDICAID ==
[~2017-09-20] VITALS: Ht 170.2 cm; Wt 70.3 kg
[2017-09-20] MEDS ORDERED: FAMOTIDINE 20 MG/2 ML IVP ONE (09:30)
[2017-09-20] MEDS ORDERED: SODIUM CHLORIDE 0.9% 1,000ML IVBOLUS ONE (09:30)
[2017-09-20] MEDS ORDERED: MORPHINE SULFATE 4 MG/ML, 1ML IVPush PRN (09:30)
[2017-09-20] MEDS ORDERED: HALOPERIDOL 5 MG/ML IM ONE (09:30)
[2017-09-20] MEDS ORDERED: ONDANSETRON 2MG/ML, 2ML IVPush ONE (09:30)
[2017-09-20] MEDS ORDERED: DICYCLOMINE 10 MG/ML, 2ML IM ONE (09:30)
[2017-09-20] MEDS ORDERED: HALOPERIDOL 5 MG/ML ONE (09:41)
[2017-09-20] MEDS ORDERED: FAMOTIDINE 20 MG/2 ML ONE (09:42)
[2017-09-20] MEDS ORDERED: DICYCLOMINE 10 MG/ML, 2ML ONE (09:42)
[2017-09-20] MEDS ORDERED: ONDANSETRON 2MG/ML, 2ML ONE (09:42)
[2017-09-20 09:43] LABS: BASOPHILS % (AUTO) 0 % (0-1); EOSINOPHILS # (AUTO) 0.01 x10^3/uL (0-0.4); EOSINOPHILS % (AUTO) 0 % (1-7); LYMPHOCYTES # (AUTO) 1.16 x10^3/uL (1-3.4); LYMPHOCYTES % (AUTO) 7 % (22-44); MD NO; MEAN CORPUSCULAR HEMOGLOBIN 32.8 pg (27.5-34.5); MEAN CORPUSCULAR HGB CONC 34.3 g/dL (33.2-36.2); MEAN CORPUSCULAR VOLUME 95.5 fL (81-97); MEAN PLATELET VOLUME 8.6 fL (7.4-10.4); MONOCYTES # (AUTO) 0.66 x10^3/uL (0.2-0.8); MONOCYTES % (AUTO) 4 % (2-9); NEUTROPHILS # (AUTO) 15.81 x10^3/uL (1.8-6.8); NEUTROPHILS % (AUTO) 90 % (42-75); PLATELET COUNT 289 x10^3/uL (130-400); RED BLOOD COUNT 4.88 x10^6/uL (4.38-5.82); RED CELL DISTRIBUTION WIDTH 13.1 % (9.4-14.8)
[2017-09-20] MEDS ORDERED: MORPHINE SULFATE 4 MG/ML, 1ML ONE (09:43)
[2017-09-20 09:55] LABS: ALANINE AMINOTRANSFERASE 58 U/L (12-78); ALBUMIN 4.1 g/dL (3.4-5.0); ANION GAP 12 mmol/L (5-15); CALCIUM 9.8 mg/dL (8.5-10.1); CHLORIDE 101 mmol/L (98-107); CREATININE 1.42 mg/dL (0.7-1.3)
[2017-09-20 09:58] LABS: ALKALINE PHOSPHATASE 75 U/L (45-117); BILIRUBIN,TOTAL 0.7 mg/dL (0.2-1.0); TOTAL PROTEIN 9.2 g/dL (6.4-8.2)
[2017-09-20 11:39] LABS: CULTURE INDICATED? YES; MICROSCOPIC INDICATED
[2017-09-20 11:57] VITALS: BP 133/82
== END 2017-09-20 12:36 | disposition home or self-care (01) ==
LOC: ED 10:23
DX: E86.0 Dehydration (principal); R10.84 Generalized abdominal pain; F12.20 Cannabis dependence, uncomplicated; Z79.899 Other long term (current) drug therapy
CPT/HCPCS: 36415; 80053; 80307; 81001; 83690; 85025; 87086; 96372; 96374; 96375; 99284; J0500; J1630; J2405; J7030; S0028

== ENCOUNTER 2017-10-26 12:37 | Inpatient (IN) | payer MEDICAID ==
[~2017-10-26] VITALS: Ht 170.2 cm; Wt 72.7 kg
[2017-10-26] MEDS ORDERED: PROMETHAZINE 25 MG/ML, 1ML ONE (13:14)
[2017-10-26 13:22] LABS: BASOPHILS # (AUTO) 0.04 x10^3/uL (0-0.1); BASOPHILS % (AUTO) 0 % (0-1); EOSINOPHILS % (AUTO) 0 % (1-7); LYMPHOCYTES # (AUTO) 1.96 x10^3/uL (1-3.4); LYMPHOCYTES % (AUTO) 14 % (22-44); MD NO; MEAN CORPUSCULAR HEMOGLOBIN 31.8 pg (27.5-34.5); MEAN CORPUSCULAR HGB CONC 33.2 g/dL (33.2-36.2); MEAN PLATELET VOLUME 8.3 fL (7.4-10.4); MONOCYTES # (AUTO) 1.09 x10^3/uL (0.2-0.8); MONOCYTES % (AUTO) 8 % (2-9); NEUTROPHILS # (AUTO) 11.49 x10^3/uL (1.8-6.8); NEUTROPHILS % (AUTO) 79 % (42-75); PLATELET COUNT 300 x10^3/uL (130-400); RED BLOOD COUNT 5.35 x10^6/uL (4.38-5.82); RED CELL DISTRIBUTION WIDTH 13.1 % (9.4-14.8)
[2017-10-26] MEDS ORDERED: SODIUM CHLORIDE FLUSH 10ML SYR IVF ONE (13:30)
[2017-10-26] MEDS ORDERED: SODIUM CHLORIDE 0.9% 1,000ML IVBOLUS ONE (13:30)
[2017-10-26] MEDS ORDERED: DIAZEPAM 5 MG/ML, 2ML IVPush ONE (13:30)
[2017-10-26] MEDS ORDERED: PROMETHAZINE 25 MG/ML, 1ML IM ONE (13:30)
[2017-10-26 13:34] LABS: ALANINE AMINOTRANSFERASE 86 U/L (12-78); ALBUMIN 4.4 g/dL (3.4-5.0); ANION GAP 12 mmol/L (5-15); CALCIUM 9.6 mg/dL (8.5-10.1); CHLORIDE 101 mmol/L (98-107); CREATININE 1.52 mg/dL (0.7-1.3)
[2017-10-26 13:36] LABS: ALKALINE PHOSPHATASE 84 U/L (45-117); BILIRUBIN,TOTAL 0.7 mg/dL (0.2-1.0); TOTAL PROTEIN 9.4 g/dL (6.4-8.2)
[2017-10-26] MEDS ORDERED: LABETALOL 5MG/ML, 20ML IVPush PRN (15:00)
[2017-10-26] MEDS: ENOXAPARIN 40 MG/0.4 ML SQ SCH (15:00)
[2017-10-26] MEDS ORDERED: ONDANSETRON 2MG/ML, 2ML IVPush PRN (15:00)
[2017-10-26 15:03] VITALS: BP 115/72
[2017-10-26 15:19] LABS: FREE T4 (FREE THYROXINE) 1.37 ng/dL (0.76-1.46)
[2017-10-26] MEDS: SODIUM CHLORIDE 0.9% 1,000 ML IV SCH ×2 (15:21→23:04)
[2017-10-26] MEDS: ONDANSETRON ODT 4 MG PO PRN ×2 (17:20→23:06)
[2017-10-26] MEDS: OMEPRAZOLE 20 MG CAPSULE.DR PO SCH (17:20)
[2017-10-26 19:03] VITALS: BP 149/88
[2017-10-26 23:34] LABS: MICROSCOPIC INDICATED
[2017-10-26 23:35] LABS: CULTURE INDICATED? YES
[2017-10-27 03:40] VITALS: BP 121/70
[2017-10-27 05:33] LABS: BASOPHILS # (AUTO) 0.03 x10^3/uL (0-0.1); BASOPHILS % (AUTO) 0 % (0-1); EOSINOPHILS # (AUTO) 0.05 x10^3/uL (0-0.4); EOSINOPHILS % (AUTO) 0 % (1-7); LYMPHOCYTES # (AUTO) 4.22 x10^3/uL (1-3.4); LYMPHOCYTES % (AUTO) 31 % (22-44); MD NO; MEAN CORPUSCULAR HEMOGLOBIN 32.5 pg (27.5-34.5); MEAN CORPUSCULAR HGB CONC 33.9 g/dL (33.2-36.2); MEAN CORPUSCULAR VOLUME 95.8 fL (81-97); MONOCYTES # (AUTO) 1.41 x10^3/uL (0.2-0.8); MONOCYTES % (AUTO) 10 % (2-9); NEUTROPHILS # (AUTO) 8.08 x10^3/uL (1.8-6.8); NEUTROPHILS % (AUTO) 59 % (42-75); PLATELET COUNT 257 x10^3/uL (130-400); RED BLOOD COUNT 4.39 x10^6/uL (4.38-5.82); RED CELL DISTRIBUTION WIDTH 13.1 % (9.4-14.8)
[2017-10-27 05:40] LABS: CHLORIDE 105 mmol/L (98-107)
[2017-10-27 05:59] LABS: ALANINE AMINOTRANSFERASE 63 U/L (12-78); ALBUMIN 3.3 g/dL (3.4-5.0); ALKALINE PHOSPHATASE 59 U/L (45-117); ANION GAP 9 mmol/L (5-15); CALCIUM 8.4 mg/dL (8.5-10.1); CREATININE 0.94 mg/dL (0.7-1.3)
[2017-10-27 06:55] VITALS: BP 141/88
[2017-10-27] MEDS: OMEPRAZOLE 20 MG CAPSULE.DR PO SCH ×2 (07:24→17:01)
[2017-10-27] MEDS: ONDANSETRON ODT 4 MG PO PRN ×2 (07:24→13:56)
[2017-10-27] MEDS: SODIUM CHLORIDE 0.9% 1,000 ML IV SCH ×2 (07:24→17:01)
[2017-10-27] MEDS: SENNA/DOCUSATE TABLET PO SCH (07:26)
[2017-10-27 13:45] VITALS: BP 118/73
[2017-10-27] MEDS: ENOXAPARIN 40 MG/0.4 ML SQ SCH (15:00)
[2017-10-27 17:18] LABS: ALBUMIN 3.4 g/dL (3.4-5.0); BILIRUBIN, DIRECT 0.2 mg/dL (0.1-0.2)
[2017-10-27 17:21] LABS: BILIRUBIN,INDIRECT 0.6 mg/dL (0.0-2.0); BILIRUBIN,TOTAL 0.8 mg/dL (0.2-1.0); TOTAL PROTEIN 6.9 g/dL (6.4-8.2)
[2017-10-27 19:34] VITALS: BP 122/78
[2017-10-28] MEDS: SODIUM CHLORIDE 0.9% 1,000 ML IV SCH ×3 (00:58→18:57)
[2017-10-28 01:22] VITALS: BP 128/82
[2017-10-28 05:44] LABS: BASOPHILS # (AUTO) 0.05 x10^3/uL (0-0.1); BASOPHILS % (AUTO) 0 % (0-1); EOSINOPHILS # (AUTO) 0.12 x10^3/uL (0-0.4); EOSINOPHILS % (AUTO) 1 % (1-7); LYMPHOCYTES # (AUTO) 4.77 x10^3/uL (1-3.4); LYMPHOCYTES % (AUTO) 44 % (22-44); MD NO; MEAN CORPUSCULAR HEMOGLOBIN 32.6 pg (27.5-34.5); MEAN CORPUSCULAR HGB CONC 34.2 g/dL (33.2-36.2); MEAN CORPUSCULAR VOLUME 95.4 fL (81-97); MEAN PLATELET VOLUME 8.2 fL (7.4-10.4); MONOCYTES % (AUTO) 10 % (2-9); NEUTROPHILS # (AUTO) 4.78 x10^3/uL (1.8-6.8); NEUTROPHILS % (AUTO) 44 % (42-75); PLATELET COUNT 250 x10^3/uL (130-400); RED BLOOD COUNT 4.06 x10^6/uL (4.38-5.82); RED CELL DISTRIBUTION WIDTH 12.9 % (9.4-14.8)
[2017-10-28 05:53] LABS: ANION GAP 8 mmol/L (5-15); CHLORIDE 106 mmol/L (98-107)
[2017-10-28 05:54] LABS: CREATININE 0.93 mg/dL (0.7-1.3)
[2017-10-28 06:47] VITALS: BP 12/69
[2017-10-28] MEDS ORDERED: POTASSIUM CHLORIDE 20 MEQ TAB.ER.PRT PO ONE ×2 (07:00→11:00)
[2017-10-28] MEDS: OMEPRAZOLE 20 MG CAPSULE.DR PO SCH ×2 (08:42→17:39)
[2017-10-28] MEDS: SENNA/DOCUSATE TABLET PO SCH (08:43)
[2017-10-28 12:52] VITALS: BP 142/83
[2017-10-28] MEDS: ENOXAPARIN 40 MG/0.4 ML SQ SCH (15:00)
[2017-10-28 18:44] VITALS: BP 156/101
[2017-10-28] MEDS: ONDANSETRON ODT 4 MG PO PRN (18:57)
[2017-10-28] MEDS ORDERED: KETOROLAC 30 MG/1 ML IVPush ONE (19:00)
[2017-10-28] MEDS ORDERED: morphine SULFATE 10 MG/ML, 1ML IVPush ONE (20:30)
[2017-10-28 21:55] VITALS: BP 165/97
[2017-10-29 02:20] VITALS: BP 162/94
[2017-10-29] MEDS: SODIUM CHLORIDE 0.9% 1,000 ML IV SCH ×2 (04:12→15:55)
[2017-10-29 05:16] LABS: BASOPHILS # (AUTO) 0.03 x10^3/uL (0-0.1); BASOPHILS % (AUTO) 0 % (0-1); EOSINOPHILS # (AUTO) 0.03 x10^3/uL (0-0.4); EOSINOPHILS % (AUTO) 0 % (1-7); LYMPHOCYTES # (AUTO) 2.55 x10^3/uL (1-3.4); LYMPHOCYTES % (AUTO) 21 % (22-44); MD NO; MEAN CORPUSCULAR HEMOGLOBIN 32.4 pg (27.5-34.5); MEAN CORPUSCULAR HGB CONC 33.9 g/dL (33.2-36.2); MEAN CORPUSCULAR VOLUME 95.6 fL (81-97); MEAN PLATELET VOLUME 8.2 fL (7.4-10.4); MONOCYTES # (AUTO) 1.05 x10^3/uL (0.2-0.8); MONOCYTES % (AUTO) 9 % (2-9); NEUTROPHILS # (AUTO) 8.68 x10^3/uL (1.8-6.8); NEUTROPHILS % (AUTO) 70 % (42-75); PLATELET COUNT 289 x10^3/uL (130-400); RED BLOOD COUNT 4.52 x10^6/uL (4.38-5.82); RED CELL DISTRIBUTION WIDTH 12.7 % (9.4-14.8)
[2017-10-29 05:19] LABS: ALBUMIN 3.7 g/dL (3.4-5.0); ANION GAP 10 mmol/L (5-15); CALCIUM 8.6 mg/dL (8.5-10.1); CHLORIDE 104 mmol/L (98-107)
[2017-10-29 05:24] LABS: ALANINE AMINOTRANSFERASE 54 U/L (12-78); ALKALINE PHOSPHATASE 63 U/L (45-117); BILIRUBIN,TOTAL 0.6 mg/dL (0.2-1.0); CREATININE 0.88 mg/dL (0.7-1.3); TOTAL PROTEIN 7.5 g/dL (6.4-8.2)
[2017-10-29 07:02] VITALS: BP 131/73
[2017-10-29] MEDS: SENNA/DOCUSATE TABLET PO SCH (09:00)
[2017-10-29] MEDS: OMEPRAZOLE 20 MG CAPSULE.DR PO SCH ×2 (09:13→15:55)
[2017-10-29] MEDS: ONDANSETRON ODT 4 MG PO PRN (09:15)
[2017-10-29] MEDS ORDERED: OMNIPAQUE 350 MG/ML, 100ML BOTTLE ONE (10:03)
[2017-10-29 13:52] VITALS: BP 123/74
[2017-10-29] MEDS: ENOXAPARIN 40 MG/0.4 ML SQ SCH (15:00)
[2017-10-29 18:48] VITALS: BP 139/88
[2017-10-29] MEDS ORDERED: MORPHINE SULFATE 4 MG/ML, 1ML IVPush ONE ×2 (20:00)
[2017-10-30 01:30] VITALS: BP 133/71
[2017-10-30 04:58] LABS: MEAN CORPUSCULAR HEMOGLOBIN 32.4 pg (27.5-34.5); MEAN CORPUSCULAR HGB CONC 33.5 g/dL (33.2-36.2); MEAN CORPUSCULAR VOLUME 96.7 fL (81-97); MEAN PLATELET VOLUME 8.1 fL (7.4-10.4); PLATELET COUNT 335 x10^3/uL (130-400); RED BLOOD COUNT 4.48 x10^6/uL (4.38-5.82); RED CELL DISTRIBUTION WIDTH 12.9 % (9.4-14.8)
[2017-10-30 05:05] LABS: ALBUMIN 3.3 g/dL (3.4-5.0); ANION GAP 6 mmol/L (5-15); CALCIUM 8.8 mg/dL (8.5-10.1); CHLORIDE 104 mmol/L (98-107); CREATININE 1.08 mg/dL (0.7-1.3)
[2017-10-30 05:59] LABS: BASOPHILS # (AUTO) 0.05 x10^3/uL (0-0.1); BASOPHILS % (AUTO) 0 % (0-1); EOSINOPHILS % (AUTO) 2 % (1-7); LYMPHOCYTES # (AUTO) 4.96 x10^3/uL (1-3.4); LYMPHOCYTES % (AUTO) 41 % (22-44); MD SCAN; MONOCYTES # (AUTO) 1.45 x10^3/uL (0.2-0.8); MONOCYTES % (AUTO) 12 % (2-9); NEUTROPHILS % (AUTO) 46 % (42-75)
[2017-10-30 06:55] VITALS: BP 126/76
[2017-10-30] MEDS: OMEPRAZOLE 20 MG CAPSULE.DR PO SCH (08:34)
[2017-10-30] MEDS: SENNA/DOCUSATE TABLET PO SCH (09:00)
[2017-10-30] MEDS: SODIUM CHLORIDE 0.9% 1,000 ML IV SCH (10:00)
[2017-10-30] MEDS ORDERED: ONDA4TAB7 PO (12:23)
[2017-10-30] MEDS ORDERED: METR500T PO (15:13)
== END 2017-10-30 12:46 | disposition home or self-care (01) | DRG 682 ==
LOC: ED 13:19 → EDIP 14:26 → 3NE 14:57 → DCLOUNGE 10-30 12:38
PROVIDERS: ADMIT Internal Medicine Pulmonary Disease; ATTEND Internal Medicine Pulmonary Disease
DX: N17.0 Acute kidney failure with tubular necrosis (principal); K85.90 Acute pancreatitis without necrosis or infection, unspecified; K76.0 Fatty (change of) liver, not elsewhere classified; E86.0 Dehydration; Z87.891 Personal history of nicotine dependence; Z91.19 Patient's noncompliance with other medical treatment and regimen; R73.9 Hyperglycemia, unspecified; R80.9 Proteinuria, unspecified
CPT/HCPCS: 36415; 74021; 74177; 76700; 80048; 80053; 80076; 81001; 82040; 83690; 83735; 84100; 84439; 84443; 85025; 87040; 87086; 87491; 87591; 87806; 96372; 96374; J1885; J2550; J3360; Q0162; Q9967; G0475; J2270; J7030

== ENCOUNTER 2021-01-01 12:09 | Inpatient (IN) | payer MEDICAID, OTHER ==
[~2021-01-01] VITALS: Ht 177.8 cm; Wt 75.6 kg
[~2021-01-01 12:09] MED LIST changes: +HYDR-2214 PO; -HYDR-3240 PO; +METR500T PO; -PANT40TA5 PO; +PANT40TA6 PO
[2021-01-01 13:02] LABS: MEAN CORPUSCULAR HEMOGLOBIN 32.6 pg (27.5-34.5); MEAN PLATELET VOLUME 8.3 fL (7.4-10.4); PLATELET COUNT 328 x10^3/uL (130-400); RED BLOOD COUNT 5.65 x10^6/uL (4.38-5.82); RED CELL DISTRIBUTION WIDTH 12.9 % (9.4-14.8)
[2021-01-01 13:11] LABS: ALBUMIN 4.9 g/dL (3.4-5.0); ANION GAP 14 mmol/L (5-15); CALCIUM 10.9 mg/dL (8.5-10.1); CHLORIDE 100 mmol/L (98-107)
[2021-01-01 13:14] LABS: ALANINE AMINOTRANSFERASE 60 U/L (12-78); ALKALINE PHOSPHATASE 96 U/L (45-117); BILIRUBIN,TOTAL 0.5 mg/dL (0.2-1.0); CREATININE 3.69 mg/dL (0.7-1.3); TOTAL PROTEIN 10.5 g/dL (6.4-8.2)
[2021-01-01 13:34] LABS: <PLATELET ESTIMATE> ADEQUATE; <PLT MORPHOLOGY> NORMAL PLT MORPH; <RBC MORPHOLOGY> NORMAL; BAND#(MANUAL) 0.23 x10^3/uL; BANDS%(MANUAL) 1 % (0-7); BASOS#(MANUAL) 0.23 x10^3/uL (0-0.1); BASOS% (MANUAL) 1 % (0-1); LYMPH#(MANUAL) 0.92 x10^3/uL (1-3.4); LYMPHS% (MANUAL) 4 % (22-44); MONOS#(MANUAL) 1.15 x10^3/uL (0.3-2.7); MONOS% (MANUAL) 5 % (2-9); SEG#(MANUAL) 20.47 x10^3/uL (1.8-6.8); SEGS% (MANUAL) 89 % (42-75)
--- NOTE | 2021-01-01 14:08 | NUR ---
SHIFT ENGINEER: PT TO ROOM, GAIT SLOW AND STEADY
[2021-01-01] MEDS ORDERED: LORazepam 2 MG/ML, 1ML ONE (14:18)
[2021-01-01] MEDS ORDERED: LORazepam 2 MG/ML, 1ML IVPush ONE (14:30)
[2021-01-01] MEDS ORDERED: KETOROLAC 30 MG/1 ML IVPush ONE (14:30)
[2021-01-01] MEDS ORDERED: MAALOX/HYOSCYAMINE/LIDOCAINE 45 ML BTL PO ONE (14:30)
[2021-01-01] MEDS ORDERED: SODIUM CHLORIDE 0.9% 1,000ML IVBOLUS ONE ×2 (14:30→16:30)
[2021-01-01] MEDS ORDERED: SODIUM CHLORIDE FLUSH 10ML SYR IVF ONE (14:30)
--- NOTE | 2021-01-01 14:36 | NUR ---
report received from lj rn, pt care transferred at this time. pt nad, resting on gurney, appears comfortable, bed in lowest, rails engaged, and call light on lap. [email or web address]. Navya fowler at for eval and poc.
--- NOTE | 2021-01-01 14:48 | NUR ---
report to katherine virgen
--- NOTE | 2021-01-01 14:56 | NUR ---
PT PROVIDED URINAL, STATES "I CANT PEE RIGHT NOW MAN, IM SUPER DEHYDRATED." PT SITTING UP IN [facility] [place], NAD, PT APPEARS DROWSY AT THIS TIME, NO OTHER CHANGES IN CONDITION. WCTM. WAITING FOR ABDOMINAL CT.
--- NOTE | 2021-01-01 15:25 | NUR ---
PT ASSISTED TO STAND AT EDGE OF BED FOR UA, PT UNABLE TO URINATE AT THIS TIME. FLUIDS COMPLETED. PT NAD, BACK TO RESTING ON GURNEY, APPEARS COMFORTABLE. WCTM.
[2021-01-01] MEDS ORDERED: SODIUM CHLORIDE 0.9% 1,000 ML IV STA (16:15)
--- NOTE | 2021-01-01 16:20 | NUR ---
ua obtained and sent to lab, pt medicated per aug, nad, appears more alert and awake at this time. no other changes in condition, back to resting on regla mata.
[2021-01-01 16:49] LABS: AMPHETAMINE SCREEN, URINE Negative (Negative); BARBITURATE SCREEN, URINE Negative (Negative); BENZODIAZEPINE SCREEN, URINE Negative (Negative); CANNABINOID SCREEN, URINE Positive (Negative); COCAINE SCREEN, URINE Negative (Negative); METHADONE SCREEN, URINE Negative (Negative); OPIATE SCREEN, URINE Positive (Negative)
--- NOTE | 2021-01-01 17:28 | NUR ---
pt resting on gurney, nad, still c/o of some pain in the lower left abdomen, bed in lowest, rails engaged, call light on lap, pt to be admitted per erp d/t lab values. wctm.
[2021-01-01] MEDS ORDERED: ONDANSETRON 2MG/ML, 2ML IVPush PRN (18:30)
[2021-01-01] MEDS ORDERED: ONDANSETRON ODT 4 MG PO PRN (18:30)
[2021-01-01] MEDS ORDERED: ENALAPRILAT 1.25 MG/ML, 2ML IVPush PRN (18:30)
[2021-01-01] MEDS ORDERED: PROMETHAZINE 25 MG/ML, 1ML IM PRN (18:30)
[2021-01-01] MEDS ORDERED: METOCLOPRAMIDE 5 MG/ML, 2ML IVPush PRN (18:30)
[2021-01-01] MEDS ORDERED: hydrALAzine 20 MG/ML, 1ML IVPush PRN (18:30)
[2021-01-01] MEDS ORDERED: HEPARIN 5,000 UNITS/ML, 1ML ONE (18:50)
[2021-01-01] MEDS: SODIUM CHLORIDE 0.9% 1,000 ML IV SCH (18:55)
[2021-01-01] MEDS: HEPARIN 5,000 UNITS/ML, 1ML SQ SCH (18:55)
[2021-01-01] MEDS ORDERED: ONDANSETRON 2MG/ML, 2ML ONE (18:59)
[2021-01-01] MEDS ORDERED: MORPHINE SULFATE 4 MG/ML, 1ML ONE (18:59)
[2021-01-01] MEDS: morphine SULFATE 10 MG/ML, 1ML IVPush PRN ×2 (19:06→22:09)
--- NOTE | 2021-01-01 19:09 | NUR ---
pt medicated per mar for pain. writhing on bed d/t discomfort, also c/o nausea. wctm.
[2021-01-01 20:43] VITALS: BP 160/91
[2021-01-01] MEDS ORDERED: DIPHENHYDRAMINE 25 MG CAPSULE PO PRN (21:00)
[2021-01-02 00:01] VITALS: BP 160/91
[2021-01-02] MEDS: morphine SULFATE 10 MG/ML, 1ML IVPush PRN ×4 (01:06→21:38)
[2021-01-02 01:19] VITALS: BP 150/92
[2021-01-02] MEDS: HEPARIN 5,000 UNITS/ML, 1ML SQ SCH ×3 (02:30→17:44)
[2021-01-02] MEDS: SODIUM CHLORIDE 0.9% 1,000 ML IV SCH ×2 (05:12→16:18)
[2021-01-02 06:01] LABS: BASOPHILS % (AUTO) 0 % (0-1); EOSINOPHILS % (AUTO) 0 % (1-7); LYMPHOCYTES % (AUTO) 15 % (22-44); MEAN CORPUSCULAR HEMOGLOBIN 32.7 pg (27.5-34.5); MEAN CORPUSCULAR HGB CONC 33.1 g/dL (33.2-36.2); MEAN PLATELET VOLUME 8.1 fL (7.4-10.4); MONOCYTES % (AUTO) 12 % (2-9); NEUTROPHILS % (AUTO) 73 % (42-75); PLATELET COUNT 210 x10^3/uL (130-400); RED BLOOD COUNT 4.68 x10^6/uL (4.38-5.82); RED CELL DISTRIBUTION WIDTH 13.1 % (9.4-14.8)
[2021-01-02 06:13] LABS: ANION GAP 6 mmol/L (5-15); CALCIUM 8.6 mg/dL (8.5-10.1); CHLORIDE 103 mmol/L (98-107)
[2021-01-02 06:15] LABS: CREATININE 1.07 mg/dL (0.7-1.3)
[2021-01-02 08:05] VITALS: BP 118/75
[2021-01-02] MEDS: PANTOPRAZOLE 40 MG IV IVPush SCH (09:28)
[2021-01-02 14:11] VITALS: BP 129/88
[2021-01-02 18:53] VITALS: BP 129/78
[2021-01-03] MEDS: SODIUM CHLORIDE 0.9% 1,000 ML IV SCH ×2 (00:44→10:30)
[2021-01-03] MEDS: morphine SULFATE 10 MG/ML, 1ML IVPush PRN (01:12)
[2021-01-03] MEDS ORDERED: DRONABINOL 5 MG CAPSULE PO PRN (01:45)
[2021-01-03] MEDS ORDERED: morphine SULFATE 10 MG/ML, 1ML IVPush PRN (02:00)
[2021-01-03] MEDS: HEPARIN 5,000 UNITS/ML, 1ML SQ SCH ×2 (02:30→10:30)
[2021-01-03 03:52] VITALS: BP 139/82
[2021-01-03 05:36] LABS: BASOPHILS % (AUTO) 0 % (0-1); EOSINOPHILS % (AUTO) 0 % (1-7); LYMPHOCYTES % (AUTO) 19 % (22-44); MEAN CORPUSCULAR HEMOGLOBIN 32.1 pg (27.5-34.5); MEAN CORPUSCULAR HGB CONC 33.5 g/dL (33.2-36.2); MONOCYTES % (AUTO) 9 % (2-9); NEUTROPHILS % (AUTO) 72 % (42-75); PLATELET COUNT 227 x10^3/uL (130-400); RED BLOOD COUNT 4.38 x10^6/uL (4.38-5.82)
[2021-01-03 05:46] LABS: ALBUMIN 3.2 g/dL (3.4-5.0); ANION GAP 8 mmol/L (5-15); CALCIUM 8.7 mg/dL (8.5-10.1); CHLORIDE 104 mmol/L (98-107)
[2021-01-03 05:50] LABS: ALANINE AMINOTRANSFERASE 55 U/L (12-78); ALKALINE PHOSPHATASE 57 U/L (45-117); BILIRUBIN,TOTAL 0.6 mg/dL (0.2-1.0); CREATININE 0.85 mg/dL (0.7-1.3); TOTAL PROTEIN 6.9 g/dL (6.4-8.2)
[2021-01-03] MEDS ORDERED: LORazepam 1MG TABLET PO PRN (07:00)
[2021-01-03] MEDS: PANTOPRAZOLE 40 MG IV IVPush SCH (07:35)
[2021-01-03 07:39] VITALS: BP 136/91
[2021-01-03] MEDS ORDERED: ONDA4TAB13 PO (09:55)
== END 2021-01-03 11:05 | disposition home or self-care (01) | DRG 391 ==
LOC: ED 12:39 → EDIP 18:05 → SUATTDRO 18:06 → 3N 20:32
PROVIDERS: ADMIT Hospitalist; ATTEND Family Medicine
DX: R11.10 Vomiting, unspecified (principal); N17.0 Acute kidney failure with tubular necrosis; R10.9 Unspecified abdominal pain; F12.10 Cannabis abuse, uncomplicated; Z88.8 Allergy status to other drugs, medicaments and biological substances; Z80.9 Family history of malignant neoplasm, unspecified; Z83.3 Family history of diabetes mellitus
CPT/HCPCS: 36415; 71045; 74176; 80048; 80053; 80307; 80320; 83690; 85025; 93005; G0378; J1644; J2405; J2550; Q0162; C9113; G0480; J2060; J2270; J7030

== ENCOUNTER 2021-02-09 06:44 | Emergency (ER) | payer OTHER ==
[~2021-02-09] VITALS: Ht 177.8 cm; Wt 74.1 kg
[2021-02-09 06:50] VITALS: BP 103/65
== END 2021-02-09 08:02 | disposition home or self-care (01) ==
LOC: ED 07:56
DX: U07.1 COVID-19 (principal); M79.10 Myalgia, unspecified site; J06.9 Acute upper respiratory infection, unspecified; F17.200 Nicotine dependence, unspecified, uncomplicated
CPT/HCPCS: 99283; U0003; U0005

== ENCOUNTER 2021-02-12 12:22 | Emergency (ER) | payer OTHER ==
[~2021-02-12] VITALS: Ht 177.8 cm; Wt 78.0 kg
--- NOTE | 2021-02-12 15:24 | NUR ---
PT BROUGHT BACK FROM TRIAGE WITH CHIEF COMPLAINT OF SOB AND CRAMPING STARTING THIS AM.
[2021-02-12] MEDS ORDERED: SODIUM CHLORIDE FLUSH 10ML SYR IVF ONE (16:30)
[2021-02-12] MEDS ORDERED: DICYCLOMINE 10 MG/ML, 2ML IM ONE (16:30)
[2021-02-12] MEDS ORDERED: ONDANSETRON 2MG/ML, 2ML IVPush ONE (16:30)
[2021-02-12] MEDS ORDERED: SODIUM CHLORIDE 0.9% 1,000ML IVBOLUS ONE (16:30)
[2021-02-12] MEDS ORDERED: KETOROLAC 30 MG/1 ML IVPush ONE (16:30)
[2021-02-12] MEDS ORDERED: ONDANSETRON 2MG/ML, 2ML ONE (16:42)
[2021-02-12] MEDS ORDERED: DICYCLOMINE 10 MG/ML, 2ML ONE (16:42)
[2021-02-12] MEDS ORDERED: KETOROLAC 30 MG/1 ML ONE (16:42)
[2021-02-12 16:59] LABS: ALANINE AMINOTRANSFERASE 60 U/L (12-78); ALBUMIN 4.2 g/dL (3.4-5.0); ANION GAP 13 mmol/L (5-15); CALCIUM 9.9 mg/dL (8.5-10.1); CHLORIDE 101 mmol/L (98-107); CREATININE 1.58 mg/dL (0.7-1.3)
[2021-02-12 17:01] LABS: ALKALINE PHOSPHATASE 75 U/L (45-117); BILIRUBIN,TOTAL 0.7 mg/dL (0.2-1.0); TOTAL PROTEIN 9.5 g/dL (6.4-8.2)
--- NOTE | 2021-02-12 17:04 | NUR ---
PT resting in bed, call light in reach. PT aware of needed urine sample.
[2021-02-12 17:21] LABS: BASOPHILS % (AUTO) 0 % (0-1); EOSINOPHILS % (AUTO) 0 % (1-7); LYMPHOCYTES % (AUTO) 13 % (22-44); MEAN CORPUSCULAR HEMOGLOBIN 31.9 pg (27.5-34.5); MEAN CORPUSCULAR HGB CONC 33.9 g/dL (33.2-36.2); MEAN PLATELET VOLUME 8.4 fL (7.4-10.4); MONOCYTES % (AUTO) 7 % (2-9); NEUTROPHILS % (AUTO) 80 % (42-75); PLATELET COUNT 266 x10^3/uL (130-400); RED BLOOD COUNT 5.21 x10^6/uL (4.38-5.82); RED CELL DISTRIBUTION WIDTH 12.8 % (9.4-14.8)
--- NOTE | 2021-02-12 18:12 | NUR ---
PT SLEEPING IN BED, CALL LIGHT IN REACH
[2021-02-12 18:43] VITALS: BP 126/63
--- NOTE | 2021-02-12 19:02 | NUR ---
FIRST ENCOUNTER WITH PATIENT. PATIENT SCREAMING ASKING FOR HELP. RN TO BEDSIDE. PATIENT REQUESTING MEDICATIONS FOR PAIN AND VOMITING. WILL UPDATE MD.
[2021-02-12] MEDS ORDERED: HALOPERIDOL 5 MG/ML IV ONE (19:30)
[2021-02-12] MEDS ORDERED: PROMETHAZINE 25 MG/ML, 1ML IM ONE (19:30)
[2021-02-12] MEDS ORDERED: HALOPERIDOL 5 MG/ML ONE ×2 (19:31→19:38)
--- NOTE | 2021-02-12 19:36 | NUR ---
PATIENT REMOVED IV.
--- NOTE | 2021-02-12 20:02 | NUR ---
RIGHT 18G FA PLACED BY BRODY MAR.
--- NOTE | 2021-02-12 20:13 | NUR ---
CT AWARE PATIENT IS NOW READY.
[2021-02-12] MEDS ORDERED: OMNIPAQUE 350 MG/ML, 100ML BOTTLE ONE (20:46)
--- NOTE | 2021-02-12 20:53 | NUR ---
PATIENT RESTING WITH EYES CLOSED. NAD. WAITING FOR CT. WILL CONTINUE TO MONITOR.
--- NOTE | 2021-02-12 21:14 | NUR ---
Patient given discharge instructions and they have confirmed that they understand the instructions. Patient ambulatory with steady gait. NAD, all questions answered appropriately, denies additional needs at this time. No personal belongings left in room after discharge.
--- NOTE | 2021-02-12 21:15 | NUR ---
18 RIGHT ARM IV D/C PRIOR TO DISCHARGE.
== END 2021-02-12 21:16 | disposition home or self-care (01) ==
LOC: ED 17:53
DX: U07.1 COVID-19 (principal); J12.82 Pneumonia due to coronavirus disease 2019; K52.9 Noninfective gastroenteritis and colitis, unspecified; D72.829 Elevated white blood cell count, unspecified; N28.9 Disorder of kidney and ureter, unspecified; R00.0 Tachycardia, unspecified; F17.200 Nicotine dependence, unspecified, uncomplicated
CPT/HCPCS: 36415; 71045; 74177; 80053; 83690; 85025; 93005; 96361; 96372; 96374; 96375; 99285; J0500; J1630; J1885; J2405; J7030; Q9967

== ENCOUNTER 2021-02-20 11:33 | Emergency (ER) | payer OTHER ==
[~2021-02-20] VITALS: Ht 177.8 cm; Wt 66.5 kg
[2021-02-20] MEDS ORDERED: KETOROLAC 30 MG/1 ML ONE (12:52)
[2021-02-20] MEDS ORDERED: ONDANSETRON 2MG/ML, 2ML ONE (12:52)
[2021-02-20 12:59] LABS: BASOPHILS % (AUTO) 0 % (0-1); EOSINOPHILS % (AUTO) 1 % (1-7); LYMPHOCYTES % (AUTO) 27 % (22-44); MEAN CORPUSCULAR HEMOGLOBIN 31.4 pg (27.5-34.5); MEAN CORPUSCULAR HGB CONC 34.4 g/dL (33.2-36.2); MONOCYTES % (AUTO) 14 % (2-9); NEUTROPHILS % (AUTO) 58 % (42-75); PLATELET COUNT 575 x10^3/uL (130-400); RED BLOOD COUNT 4.91 x10^6/uL (4.38-5.82); RED CELL DISTRIBUTION WIDTH 12.7 % (9.4-14.8)
[2021-02-20] MEDS ORDERED: SODIUM CHLORIDE 0.9% 1,000ML IVBOLUS ONE ×2 (13:00→13:30)
[2021-02-20] MEDS ORDERED: ONDANSETRON 2MG/ML, 2ML IVPush ONE (13:00)
[2021-02-20] MEDS ORDERED: KETOROLAC 30 MG/1 ML IVPush ONE (13:00)
[2021-02-20 13:06] LABS: ALBUMIN 3.6 g/dL (3.4-5.0); ANION GAP 9 mmol/L (5-15); CALCIUM 9.1 mg/dL (8.5-10.1); CHLORIDE 100 mmol/L (98-107); CREATININE 1.24 mg/dL (0.7-1.3)
--- NOTE | 2021-02-20 13:10 | NUR ---
BLADDER SCAN 34 ML PROVIDER MADE AWARE.
[2021-02-20] MEDS ORDERED: MORPHINE SULFATE 4 MG/ML, 1ML ONE ×2 (13:31→15:04)
[2021-02-20] MEDS: MORPHINE SULFATE 4 MG/ML, 1ML IVPush PRN ×2 (13:34→15:05)
--- NOTE | 2021-02-20 13:35 | NUR ---
REPORT FROM BRODY MAR FOR TRANSFER OF PATIENT CARE. PATIENT MEDICATED PER [employer], CONNECTED TO MONITOR, VSS, CALL LIGHT WITHIN REACH. EDUCATED PATIENT ON NEED FOR URINE SAMPLE.
--- NOTE | 2021-02-20 15:05 | NUR ---
URINE COLLECTED AND WALKED TO LAB. PATIENT STILL C/O 5/10 ABD PAIN, MEDICATED WITH SECOND DOSE OF MORPHINE. CONNECTED TO MONITOR, VSS, CALL LIGHT WITHIN REACH.
[2021-02-20 15:25] LABS: MICROSCOPIC INDICATED
--- NOTE | 2021-02-20 16:14 | NUR ---
PATIENT RESTING IN GURNEY WITH EYES CLOSED, RESP EVEN AND UNLABORED, CONNECTED TO MONITOR, VSS, CALL LIGHT WITHIN REACH. PATIENT UP FOR RECHECK.
[2021-02-20 16:17] VITALS: BP 113/70
--- NOTE | 2021-02-20 16:28 | NUR ---
IV removed with tip intact. Patient given discharge instructions and prescription and they have confirmed that they understand the instructions. Patient ambulatory with steady gait. NAD, all questions answered appropriately, denies additional needs at this time. No personal belongings left in room after discharge.
== END 2021-02-20 16:29 | disposition home or self-care (01) ==
LOC: ED 11:37
DX: N18.2 Chronic kidney disease, stage 2 (mild) (principal); R11.2 Nausea with vomiting, unspecified; E86.0 Dehydration; R00.0 Tachycardia, unspecified
CPT/HCPCS: 36415; 74176; 80048; 81001; 82040; 85025; 87086; 93005; 96361; 96374; 96375; 96376; 99285; J1885; J2270; J2405; J7030